=== PATIENT | female | born 1990 | race African-American/Black ===

== ENCOUNTER 2020-09-07 14:35 | Emergency (ER) | payer OTHER ==
[~2020-09-07] VITALS: Ht 162.6 cm; Wt 71.8 kg
[2020-09-07] MEDS ORDERED: UNIS25TA3 PO (14:52)
[2020-09-07] MEDS ORDERED: BUTACAP78 PO (14:52)
[2020-09-07] MEDS ORDERED: PYRI50TA8 PO ×2 (14:52)
[2020-09-07] MEDS ORDERED: MULTTAB20 PO (14:52)
[2020-09-07] MEDS ORDERED: FERR325T3 PO (14:53)
[2020-09-07] MEDS ORDERED: VITA500C24 PO (14:53)
[2020-09-07 18:48] LABS: ALBUMIN 3.3 GM/DL (3.2-5.2); ALT/SGPT 28 U/L (12-78); BILIRUBIN,TOTAL 0.2 MG/DL (0.2-1.0); BLOOD UREA NITROGEN 8 MG/DL (7-18); CALCIUM LEVEL 9.4 MG/DL (8.5-10.1); CARBON DIOXIDE LEVEL 24 MEQ/L (21-32); CHLORIDE LEVEL 105 MEQ/L (98-107); GLOMERULAR FILTRATION RATE > 60.0 (>60); GLUCOSE, FASTING 80 MG/DL (70-100); POTASSIUM SERUM 4.6 MEQ/L (3.5-5.1); SODIUM LEVEL 138 MEQ/L (136-145)
--- NOTE | 2020-09-07 19:46 | REP ---
INDICATION: patient has been light headed By LMP she is 14 weeks 6 days with EDC 05/26/2020. COMPARISON: None. TECHNIQUE: Limited Ob ultrasound: FINDINGS: The study demonstrates a single intrauterine gestation in transverse position. There is a posterior grade 0 placenta without previa. The amniotic fluid volume is visually normal. There is a closed 3.5 cm long cervix. heart rate measures 152 bpm. No biometry measurements are provided on this very limited examination. IMPRESSION: Single intrauterine gestation in transverse presentation with a posterior grade 0 placenta without previa or abruption. Cervix 3.5 cm long and closed the amniotic fluid volume visually normal. heart rate 152 and normal. No biometry measurements were included with this limited examination. <Electronically signed by Omega Leach > 09/07/201941
[2020-09-07 20:03] LABS: BILIRUBIN,DIRECT < 0.1 MG/DL (0.0-0.2)
[2020-09-07 20:14] LABS: BASO % 0.4 % (0.0-1.0); EOS # 0.1 10^3/uL (0.0-0.5); EOS % 1.3 % (0.0-3.0); HEMATOCRIT 34.6 % (36.0-47.0); HEMOGLOBIN 11.4 g/dl (12.0-15.5); LYMPH # 2.2 10^3/uL (1.5-5.0); LYMPH % 21.4 % (24.0-44.0); MEAN CORPUSCULAR HEMOGLOBIN 31.9 pg (27.0-33.0); MEAN CORPUSCULAR HGB CONC 32.9 g/dl (32.0-36.5); MEAN CORPUSCULAR VOLUME 96.9 fl (80.0-96.0); MONO # 0.7 10^3/uL (0.0-0.8); MONO % 6.8 % (2.0-8.0); NEUTROPHILS # 7.2 10^3/uL (1.5-8.5); NEUTROPHILS % 69.7 % (36.0-66.0); PLATELET COUNT, AUTOMATED 311 10^3/uL (150-450); RED BLOOD COUNT 3.57 10^6/uL (4.00-5.40); WHITE BLOOD COUNT 10.3 10^3/uL (4.0-10.0)
[2020-09-07 20:26] VITALS: BP 130/73
[2020-09-07 21:05] LABS: ALBUMIN 3.2 GM/DL (3.2-5.2); ALT/SGPT 26 U/L (12-78); BILIRUBIN,DIRECT < 0.1 MG/DL (0.0-0.2); BILIRUBIN,TOTAL 0.2 MG/DL (0.2-1.0); HCG, SERUM QUANTITATIVE 69197 MIU/ML; LIPASE 436 U/L (73-393); TOTAL PROTEIN 6.7 GM/DL (6.4-8.2)
--- NOTE | 2020-09-07 22:01 | REPVR ---
PROCEDURE INFORMATION: Exam: US Pelvis Limited, Transabdominal, Soft tissue Exam date and time: 09/07/2020 8:56 PM Age: 29 years old Clinical indication: Other: Rlq pain TECHNIQUE: Imaging protocol: Real-time transabdominal pelvic ultrasound with image documentation. Limited exam. Exam focused on the soft tissue. COMPARISON: Obs. Limited, MAYANK US 09/07/2020 7:18 PM FINDINGS: Soft tissues: Appendix not visualized. Right ovary identified. Normal vascular flow to the right ovary. IMPRESSION: Appendix not visualized. Nonvisualization of the appendix does not exclude acute appendicitis. Electronically signed by: Dipesh Wall On 09/07/2020 22:01:18 PM
[2020-09-07] MEDS ORDERED: ZOFR4TAB16 PO (22:24)
--- NOTE | 2020-09-08 10:56 | ECGEPIP ---
[facility] - ED Test Date: 2020-09-07 Pat Name: KELLY MILLER Department: Room: - Gender: Female [employer]: : 1990 Requested By: BIBI BLOOM PA-C. Order Number: [id number] Reading MD: Isabel Edmondson Measurements Intervals Arrey Rate: 66 P: 60 NJ: 152 QRS: 22 QRSD: 84 T: 32 QT: 406 QTc: 425 Interpretive Statements Normal sinus rhythm No prior Electronically Signed on 09-08-2020 10:55:42 EDT by Isabel Edmondson
== END 2020-09-07 22:33 | disposition home or self-care (01) ==
LOC: M ED 14:35
DX: O99.352 Diseases of the nervous system complicating pregnancy, second trimester (principal); H81.399 Other peripheral vertigo, unspecified ear; G43.909 Migraine, unspecified, not intractable, without status migrainosus; O26.892 Other specified pregnancy related conditions, second trimester; R10.31 Right lower quadrant pain; O99.012 Anemia complicating pregnancy, second trimester; D55.0 Anemia due to glucose-6-phosphate dehydrogenase [G6PD] deficiency; O99.612 Diseases of the digestive system complicating pregnancy, second trimester; K29.70 Gastritis, unspecified, without bleeding; Z87.820 Personal history of traumatic brain injury; Z3A.14 14 weeks gestation of pregnancy; Z79.899 Other long term (current) drug therapy

== ENCOUNTER 2020-10-14 23:46 | Outpatient (CLI) | payer OTHER ==
[~2020-10-14] VITALS: Ht 162.6 cm; Wt 73.8 kg
[~2020-10-14 23:46] MED LIST: BUTACAP78 PO; FERR325T3 PO; MULTTAB20 PO; PYRI50TA8 PO; UNIS25TA3 PO; VITA500C24 PO; ZOFR4TAB16 PO
[2020-10-15 00:06] VITALS: BP 112/65
[2020-10-15] MEDS ORDERED: ACET500P3 PO (00:29)
[2020-10-15] MEDS ORDERED: FAMO20TA PO (00:32)
[2020-10-15] MEDS ORDERED: HYDR-643 PO (00:32)
[2020-10-15] MEDS ORDERED: FIOR1CAP PO (00:32)
[2020-10-15] MEDS ORDERED: HOME MED LIST COMPLETE! XX SCH (00:35)
[2020-10-15] MEDS ORDERED: CYCLOBENZAPRINE 10MG TABLET PO ONE (02:00)
--- NOTE | 2020-10-15 06:59 | IPNPDOC ---
Text Note Date of Service The patient was seen on 10/15/20. NOTE 30 yo at ~20 weeks gestation presented to L&D with back pain. She has chronic back pain ever since a jump injury in ~2017. She sees a chiropractor regularly which improves her symptoms. She has an appointment with a chiropractor later today. She denies any dysuria, vaginal bleeding, or discharge. She also denies any fevers/chills, SOB, chest pain, or SOB. Chaperoned by RN Vitals - VSS, afebrile, normotensive, non tachycardic General - AAOX3, sitting up in bed, NAD Back - Tightness to palpation in lumbosacral region. No CVA tenderness Abdomen - Gravid uterus appropriate size for gestational age. No fundal tenderness Extremities - No edema dopp tones: 150s UA - Unremarkable Patient given flexeril with improvement in symptoms. She has an appointment with a chiropractor later today. Follow up as needed as scheduled with OB. All questions answered. 30 minutes Juan Stock, I+O VS, Juan, I+O Vital Signs Date Time Temp Pulse Resp B/P (MAP) Pulse Ox O2 Delivery O2 Flow Rate FiO2 10/15/20 00:06 98.9 80 18 112/65 (81) PHIL FLOR DO Oct 15, 2020 06:59
== END 2020-10-15 04:30 | disposition home or self-care (01) ==
LOC: M LDO 23:46
PROVIDERS: ATTEND Obstetrics & Gynecology
DX: O26.892 Other specified pregnancy related conditions, second trimester (principal); Z3A.20 20 weeks gestation of pregnancy; M54.9 Dorsalgia, unspecified
CPT/HCPCS: 59025; 81001; G0378; G0463

== ENCOUNTER 2021-01-09 21:34 | Outpatient (CLI) | payer OTHER ==
[~2021-01-09 21:34] MED LIST changes: +ACET500P3 PO; +FAMO20TA PO; +FIOR1CAP PO; +HYDR-643 PO
[2021-01-09 22:13] VITALS: BP 111/71
[2021-01-09] MEDS ORDERED: CYCLOBENZAPRINE 10MG TABLET PO ONE (22:40)
[2021-01-09] MEDS ORDERED: PERCOCET 5MG/325MG TAB PO ONE (22:40)
--- NOTE | 2021-01-09 23:38 | IPNPDOC ---
Text Note Date of Service The patient was seen on 01/09/21. NOTE 01/09/21 29 y.o LMP 05/26/20 EDC BY EARLY US 03/02/21 AT 33 WEEKS HISTORY FALL 48 HOURS AGO NOW SEVER BACK PAIN AND SPASM UNABLE TO STAND NUMBNESS LEFT AND RIGHT LOWER LEGS . PRESENTLY GOING TO PT [facility] CHIROPRACTOR HELPS 25% ON FLEXERIL PO RISK FACTORS FIBROID UTERUS G6PD DEFICIENCY GI ULCERS TBI DEPRESSION ANEMIA EXAMINATION IN PAIN WITH BACK SPASM UNABLE TO STAND USES WALKER . REVIEWED CATEGORY 1 STRIP PRE MEDICATION . NO CONTRACTIONS NO DECELERATIONS MODERATE VARIABILITY PLAN ADMINISTER PAIN MEDICATION AND ANTI SPASMODICS GET MRI WITHOUT CONTRAST AND ORTHO CONSULT, AND CHANGE PROFILE,. PATIENT DISCHARGED UNDELIVERED ALL PRECAUTIONS REVIEWED VS,Fishbone, I+O VS, Fishbone, I+O Vital Signs Date Time Temp Pulse Resp B/P (MAP) Pulse Ox O2 Delivery O2 Flow Rate FiO2 01/09/21 22:52 18 01/09/21 22:27 98.5 01/09/21 22:13 80 111/71 (84) Gregg Roland MD Jan 09, 2021 23:37
--- NOTE | 2021-01-10 01:43 | REPVR ---
PROCEDURE INFORMATION: Exam: MR Lumbar Spine Without Contrast. Exam date and time: 01/10/2021 12:46 AM Age: 30 years old Clinical indication: Low back pain; Additional info: Fall with loss of rom weak legs inability to stand TECHNIQUE: Imaging protocol: Multiplanar magnetic resonance images of the lumbar spine without contrast. COMPARISON: 1. Pelvis, limited US 2020-09-07 20:50 2. Obs. Limited, MAYANK US 2020-09-07 19:18 FINDINGS: Vertebrae: Unremarkable. Spinal cord: Normal signal. No cord compression. Discs/Spinal canal/Neural foramina: No significant disc disease. No significant spinal canal stenosis. No neural foraminal stenosis. Sacrum/coccyx: Distended bladder, or other reproductive cystic lesion or ventral to the sacrum is only partially visualized, correlate. Soft tissues: Unremarkable. IMPRESSION: 1. Unremarkable spine. 2. Distended bladder, or other reproductive cystic lesion or ventral to the sacrum is only partially visualized, correlate. Electronically signed by: Oleg Agudelo On 01/10/2021 01:43:04 AM
== END 2021-01-10 01:10 | disposition home or self-care (01) ==
LOC: M LDO 21:34
PROVIDERS: ATTEND Obstetrics & Gynecology
DX: O26.893 Other specified pregnancy related conditions, third trimester (principal); M62.830 Muscle spasm of back; Y92.9 Unspecified place or not applicable; Y93.9 Activity, unspecified; Y99.9 Unspecified external cause status; Z3A.33 33 weeks gestation of pregnancy
CPT/HCPCS: 59025; 72148; G0378; G0463